=== PATIENT | female | born 1995 | race Caucasian/White ===

== ENCOUNTER 2020-01-10 16:53 | Emergency (ER) | payer BC ==
[2020-01-10] MEDS ORDERED: Ketorolac 30 MG/ML SDV IVPUSH ONE (17:11)
[2020-01-10] MEDS ORDERED: Sodium Chloride 0.9% 10 ML Syringe FLUSH PRN (17:11)
[2020-01-10] MEDS ORDERED: Ondansetron 4 MG/2 ML SDV IVPUSH ONE (17:11)
[2020-01-10] MEDS ORDERED: Sodium Chloride 0.9% 1,000 ML IV ONE (17:11)
--- NOTE | 2020-01-10 17:15 | EDM.PDOC ---
ED HPI GENERAL MEDICAL PROBLEM - General Stated Complaint: STOMACH PAIN Time Seen by Provider: 01/10/20 17:06 Source of Information: Reports: Patient - History of Present Illness INITIAL COMMENTS - FREE TEXT/NARRATIVE: Dalton is a 24 y/o female who comes to the Er with abdominal pain that started about 0600 this AM. She reports the pain in sharp and constant and it makes her cry. Sh edid try some TUMs and Pepto Bismol about an hour ago, but it has not gotten any better. She has felt hot and cold for the last day. She had a normal BM today. Denies that she has been around any family or friends with similar sx. Upper Abdomen Pain Score (Numeric/FACES): 8 - Related Data Allergies Allergy/AdvReac Type Severity Reaction Status Date / Time No Known Allergies Allergy Verified 01/10/20 17:41 Home Meds: Home Meds . [No Known Home Meds] 01/10/20 [History] Review of Systems - Review of Systems Review Of Systems: See Below Constitutional: Reports: Chills, Fever Eyes: Reports: No Symptoms Ears: Reports: No Symptoms Nose: Reports: No Symptoms Mouth/Throat: Reports: No Symptoms Respiratory: Reports: No Symptoms Cardiovascular: Reports: No Symptoms GI/Abdominal: Reports: Abdominal Pain (Epigastric), Nausea Genitourinary: Reports: No Symptoms Musculoskeletal: Reports: No Symptoms Skin: Reports: No Symptoms Neurological: Reports: No Symptoms Psychiatric: Reports: No Symptoms ED EXAM, GENERAL - Physical Exam Exam: See Below General Appearance: Alert, WD/WN, No Apparent Distress (Young adult female, appears to not feel well.) Ears: Hearing Grossly Normal Nose: Normal Inspection Throat/Mouth: Normal Voice Head: Atraumatic, Normocephalic Neck: Normal Inspection Respiratory/Chest: No Respiratory Distress, Lungs Clear, Chest Non-Tender Cardiovascular: Normal Peripheral Pulses, Regular Rate, Rhythm, No Edema, No Murmur GI/Abdominal: Normal Bowel Sounds, Soft, No Organomegaly, No Distention, Tender (Epigastrum) (Female) Exam: Deferred Rectal (Female) Exam: Deferred Back Exam: Normal Inspection, Other (Neg CVAT) Extremities: Normal Inspection, Normal Range of Motion, No Pedal Edema, Normal Capillary Refill Neurological: Alert, Oriented, CN II-XII Intact, Normal Cognition Psychiatric: Normal Affect, Normal Mood Skin Exam: Warm, Dry, Intact, Normal Color Lymphatic: No Adenopathy Course - Vital Signs Text/Narrative:: The patient was seen by the ELEMENTARY SPECIAL EDUCATION TEACHER. Labs ordered. She was given a liter of NS, Toradol 30mg IVP and Zofran 4mg IVP. CT results reviewed. Patient felt better, but was slightly nauseated after the oral CT contrast. She was given discharge instructions and left the ER in stable condition. Last Recorded V/S: Last Vital Signs Temp 36.3 C 01/10/20 17:06 Pulse 73 01/10/20 17:06 Resp 18 01/10/20 17:06 BP 136/84 01/10/20 17:06 Pulse Ox 99 01/10/20 17:06 - Orders/Labs/Meds Orders: Active Orders 24 hr Category Date Time Status CULTURE URINE [RM] Stat Lab 01/10/20 18:10 Received Sodium Chloride 0.9% [Saline Flush] Med 01/10/20 17:11 Active 10 ml FLUSH ASDIRECTED PRN Saline Lock Insert [OM.PC] Stat Oth 01/10/20 17:10 Ordered Medication Orders Sodium Chloride (Saline Flush) 10 ml FLUSH ASDIRECTED PRN PRN Reason: Keep Vein Open Labs: Laboratory Tests 01/10/20 01/10/20 01/10/20 Range/Units 17:16 17:16 18:10 WBC 15.7 H (4.0-10.0) x10^3/uL RBC 4.84 (4.00-5.50) x10^6/uL Hgb 15.1 (12.0-16.0) g/dL Hct 43.9 (33.0-47.0) % MCV 90.7 (78.0-93.0) fL MCH 31.2 (26.0-32.0) pg MCHC 34.4 (32.0-36.0) g/dL RDW Coeff of Olga 11.6 (10.0-15.0) % Plt Count 282 (130-400) x10^3/uL Neut % (Auto) 77.4 (50.0-80.0) % Lymph % (Auto) 17.5 L (25.0-50.0) % [place] % (Auto) 4.5 (2.0-11.0) % Eos % (Auto) 0.4 (0.0-4.0) % Baso % (Auto) 0.2 (0.2-1.2) % Sodium 136 (136-145) mmol/L Potassium 3.6 (3.5-5.1) mmol/L Chloride 101 (98-107) mmol/L Carbon Dioxide 26 (21-32) mmol/L Anion Gap 12.6 (10-20) mmol/L BUN 13 (7-18) mg/dL Creatinine 0.8 (0.55-1.02) mg/dL Est Cr Clr Drug Dosing TNP Estimated GFR (MDRD) > 60 Glucose 90 (74-106) mg/dL Calcium 9.2 (8.5-10.1) mg/dL Corrected Calcium 8.64 (8.5-10.1) mg/dL Total Bilirubin 0.3 (0.2-1.0) mg/dL AST 15 (15-37) U/L ALT 18 (14-59) U/L Alkaline Phosphatase 46 (46-116) U/L Total Protein 8.1 (6.4-8.2) g/dL Albumin 4.7 (3.4-5.0) g/dL Globulin 3.4 Albumin/Globulin Ratio 1.38 Amylase 57 (25-115) U/L Lipase 159 (73-393) U/L Urine Color Dark yellow H (YELLOW) Urine Appearance Cloudy H (CLEAR) Urine pH 6.0 (5.0-8.0) Ur Specific [place] >=1.030 Urine Protein Negative (NEGATIVE) mg/dL Urine Glucose (UA) Negative (NEGATIVE) mg/dL Urine Ketones Negative (NEGATIVE) mg/dL Urine Occult Blood Negative (NEGATIVE) Urine Nitrite Negative (NEGATIVE) Urine Bilirubin Negative (NEGATIVE) Urine Urobilinogen 0.2 (0.2) EU/dL Ur Leukocyte Esterase Trace H (NEGATIVE) Urine RBC 0-5 (NOT SEEN) /HPF Urine WBC 0-5 (NOT SEEN) /HPF Ur Squamous Epith Cells Few H (NEGATIVE) /HPF Urine Bacteria Few H (NEGATIVE) /HPF Urine Mucus Many H (NEGATIVE) /LPF Meds: Medications Generic Name Dose Route Start Last Admin Trade Name Freq PRN Reason Stop Dose Admin Sodium Chloride 10 ml 01/10/20 17:11 Saline Flush FLUSH ASDIRECTED PRN Keep Vein Open Discontinued Medications Generic Name Dose Route Start Last Admin Trade Name Gudelia PRN Reason Stop Dose Admin Sodium Chloride 1,000 mls @ 999 mls/hr 01/10/20 17:11 01/10/20 17:22 Normal Saline IV 01/10/20 18:11 999 mls/hr ONETIME ONE Administration Iopamidol 100 ml 01/10/20 19:09 01/10/20 19:10 Isovue-300 (61%) IVPUSH 01/10/20 19:10 100 ml ONETIME ONE Administration Ketorolac Tromethamine 30 mg 01/10/20 17:11 01/10/20 17:25 Toradol IVPUSH 01/10/20 17:12 30 mg ONETIME ONE Administration Ondansetron HCl 4 mg 01/10/20 17:11 01/10/20 17:23 Zofran IVPUSH 01/10/20 17:12 4 mg ONETIME ONE Administration Ondansetron HCl 3 packet 01/10/20 19:21 Take Home: Ondansetron Odt 4 Mg, 2 Tab Pack PO 01/10/20 19:22 ONETIME ONE - Radiology Interpretation Free Text/Narrative:: CT Abd/Pelvis W=no acute findings Departure - Departure Time of Disposition: 19:39 Disposition: Home, Self-Care 01 Condition: Good Clinical Impression: Abdominal pain, Nausea & vomiting - Discharge Information *PRESCRIPTION DRUG MONITORING PROGRAM REVIEWED*: No *COPY OF PRESCRIPTION DRUG MONITORING REPORT IN PATIENT EMILEE: No Instructions: Nausea and Vomiting, Adult Additional Instructions: -Ondanestron 4mg oral every 4 hours as needed for nausea #6(ER) -Rest -Stay hydrated with sips of clear liquids. Advance your diet as you are able. -If your pain is worse or you are not improving, follow up with your PCP or return to the ER. Sepsis Event Note (ED) - Focused Exam Vital Signs: Vital Signs Temp Pulse Resp BP Pulse Ox 01/10/20 17:06 36.3 C 73 18 136/84 99 - My Orders Last 24 Hours: My Active Orders 01/10/20 17:10 Saline Lock Insert [OM.PC] Stat 01/10/20 17:11 Sodium Chloride 0.9% [Saline Flush] 10 ml FLUSH ASDIRECTED PRN 01/10/20 18:10 CULTURE URINE [RM] Stat - Assessment/Plan Last 24 Hours: My Active Orders 01/10/20 17:10 Saline Lock Insert [OM.PC] Stat 01/10/20 17:11 Sodium Chloride 0.9% [Saline Flush] 10 ml FLUSH ASDIRECTED PRN 01/10/20 18:10 CULTURE URINE [] Stat
[2020-01-10 17:56] LABS: ANION GAP 12.6 mmol/L (10-20); CHLORIDE,CL 101 mmol/L (98-107); SODIUM,NA 136 mmol/L (136-145)
[2020-01-10] MEDS ORDERED: Iopamidol 612 MG/ML 100 ML Bottle IVPUSH ONE (19:09)
[2020-01-10] MEDS ORDERED: Take Home: Ondansetron 4 MG Tab.DIS, 2 Tab Pack PO ONE (19:21)
--- NOTE | 2020-01-10 19:34 | CT ---
[id number] CT/CT Abdomen Pelvis W IV EXAM: CT Abdomen Pelvis W IV CLINICAL DATA: EPIGASTRIC PAIN HIGH WBC. COMPARISON STUDY: None. FINDINGS: Lung bases are clear. Liver, spleen, gallbladder, pancreas, adrenal glands, and kidneys are unremarkable. No bowel obstruction or inflammation. There is a partially visualized tubular structure within the right lower quadrant which likely represents the appendix. If so it is normal in caliber. There are no secondary signs of acute appendicitis. No lymphadenopathy, or pneumoperitoneum. The uterus is unremarkable. Small bilateral renal adnexal cysts. Small amount of free fluid within the pelvis. Scattered changes of spondylosis the spine. No fracture or osseous lesion. IMPRESSION: 1. The appendix is not definitely identified. There are no definite secondary signs of acute appendicitis. If clinical concern, surgical consultation is recommended. Otherwise, no definite acute CT findings within the abdomen or pelvis to explain the patient's symptoms. Narendra Vazquez DO 01/10/20 1932 Thank you for allowing us to participate in the care of your patient.
== END 2020-01-10 20:05 | disposition home or self-care (01) ==
LOC: VM.ED 16:53
DX: R10.13 Epigastric pain (principal); R11.2 Nausea with vomiting, unspecified
CPT/HCPCS: 74177; 80053; 81001; 82150; 83690; 85025; 87086; 96361; 96374; 96375; 99284-25; A9270-GY; J1885; J2405; J7030; Q9967

== ENCOUNTER 2020-03-30 01:05 | Emergency (ER) | payer BC ==
[2020-03-30] MEDS ORDERED: GI Cocktail Oral Solution 30 ML PO ONE (01:21)
--- NOTE | 2020-03-30 01:26 | EDM.PDOC ---
ED HPI GENERAL MEDICAL PROBLEM - General Chief Complaint: Abdominal Pain Stated Complaint: Epigastric pain, vomiting Time Seen by Provider: 03/30/20 01:17 Source of Information: Reports: Patient - History of Present Illness INITIAL COMMENTS - FREE TEXT/NARRATIVE: Yessi is a 24 y/o female who comes to the ER with epigastric pain that started about 11pm. She reports eating chili about 3pm today and then she went to bed, ut woke up feeling this way. Describes the pain as a "pressure coming up" and "burning". No fever. She tried a Zofran at home, but it has not helped. She feels nauseated and has been wretching. Epigastric Pain Score (Numeric/FACES): 7 - Related Data Allergies Allergy/AdvReac Type Severity Reaction Status Date / Time No Known Allergies Allergy Verified 03/30/20 01:13 Home Meds: Home Meds FLUoxetine HCl [Prozac] 20 mg PO DAILY 03/30/20 [History] Past Medical History - Past Health History Medical/Surgical History: Denies Medical/Surgical History Review of Systems - Review of Systems Review Of Systems: See Below Constitutional: Reports: No Symptoms Eyes: Reports: No Symptoms Ears: Reports: No Symptoms Nose: Reports: No Symptoms Mouth/Throat: Reports: No Symptoms Respiratory: Reports: No Symptoms, Cough GI/Abdominal: Reports: Abdominal Pain (Epigastric), Nausea, Vomiting Genitourinary: Reports: No Symptoms Musculoskeletal: Reports: No Symptoms Skin: Reports: No Symptoms Neurological: Reports: No Symptoms Psychiatric: Reports: No Symptoms ED EXAM, GENERAL - Physical Exam Exam: See Below General Appearance: Alert, WD/WN, No Apparent Distress (Appears to not feel well) Ears: Normal External Exam Nose: Normal Inspection Throat/Mouth: Normal Voice Head: Atraumatic, Normocephalic Neck: Normal Inspection Respiratory/Chest: No Respiratory Distress, Lungs Clear Cardiovascular: Normal Peripheral Pulses, Regular Rate, Rhythm GI/Abdominal: Normal Bowel Sounds, No Distention, Tender (Epigastric region) (Female) Exam: Deferred Rectal (Female) Exam: Deferred Back Exam: Vertebral Tenderness (lumbar region) Extremities: Normal Inspection, Normal Capillary Refill Neurological: Alert, Oriented, CN II-XII Intact Psychiatric: Normal Affect, Normal Mood Skin Exam: Warm, Dry, Intact, Normal Color Lymphatic: No Adenopathy Course - Vital Signs Text/Narrative:: 0117 The patient was seen by the OFFICE SUPERVISOR. Her ER note from was reviewed and findings negative at that time. She was given a GI Cocktail, suspect indigestion but if sx not better will obtain labs. 0145 Patient vomiting and wretching after GI Cocktail. Labs ordered. 1 liter of LR and Reglan 10 mg IVP given. 0255 Patient will having abd pain in epigastrum. WBC=14.1, neut=8o%, COVID+. Ct Abd/Pelvis W ordered. 0430 CT results reviewed, note early appendicitis. [facility] contacted for transfer. Dr Apple consulted regarding patient; patient accepted for transfer. She is discussing with surgeon and planning where patient will go at [facility]. CT and report sent to [facility]. Zosyn 3.375gm IVPB ordered. 0445 Patient awaiting transfer while Zosyn infuses. Morphine 4mg IVP and Zofran 4mg IVP. Patient remained stable until leaving the ER via POV for transfer to [place]. Last Recorded V/S: Last Vital Signs Temp 36.7 C 03/30/20 03:15 Pulse 65 03/30/20 01:05 Resp 16 03/30/20 01:05 BP 112/76 03/30/20 01:05 Pulse Ox 96 03/30/20 01:05 - Orders/Labs/Meds Orders: Active Orders 24 hr Category Date Time Status Abdomen Pelvis w Cont [CT] Stat Exams 03/30/20 02:58 Taken CORONAVIRUS COVID-19 PCR PHL Stat Lab 03/30/20 01:55 Ordered CULTURE URINE [RM] Stat Lab 03/30/20 01:56 Received Piperacillin/Tazobactam [Zosyn] 3.375 gm Med 03/30/20 04:30 Ordered Sodium Chloride 0.9% [Normal Saline] 100 ml IV STAT Medication Orders Piperacillin Sod/Tazobactam (Sod 3.375 gm/ Sodium Chloride) 100 mls @ 200 mls/hr IV STAT ONE Stop: 03/30/20 04:59 Labs: Laboratory Tests 03/30/20 03/30/20 03/30/20 Range/Units 01:56 01:56 01:56 WBC (4.0-10.0) x10^3/uL RBC (4.00-5.50) x10^6/uL Hgb (12.0-16.0) g/dL Hct (33.0-47.0) % MCV (78.0-93.0) fL MCH (26.0-32.0) pg MCHC (32.0-36.0) g/dL RDW Coeff of Olga (10.0-15.0) % Plt Count (130-400) x10^3/uL Neut % (Auto) (50.0-80.0) % Lymph % (Auto) (25.0-50.0) % [place] % (Auto) (2.0-11.0) % Eos % (Auto) (0.0-4.0) % Baso % (Auto) (0.2-1.2) % Sodium (136-145) mmol/L Potassium (3.5-5.1) mmol/L Chloride (98-107) mmol/L Carbon Dioxide (21-32) mmol/L Anion Gap (10-20) mmol/L BUN (7-18) mg/dL Creatinine (0.55-1.02) mg/dL Est Cr Clr Drug Dosing mL/min Estimated GFR (MDRD) Glucose (74-106) mg/dL Calcium (8.5-10.1) mg/dL Corrected Calcium (8.5-10.1) mg/dL Total Bilirubin (0.2-1.0) mg/dL AST (15-37) U/L ALT (14-59) U/L Alkaline Phosphatase (46-116) U/L Total Protein (6.4-8.2) g/dL Albumin (3.4-5.0) g/dL Globulin Albumin/Globulin Ratio Amylase (25-115) U/L Urine Color Dark yellow H (YELLOW) Urine Appearance Slightly cloudy H (CLEAR) Urine pH 5.5 (5.0-8.0) Ur Specific [place] >=1.030 Urine Protein 30 H (NEGATIVE) mg/dL Urine Glucose (UA) Negative (NEGATIVE) mg/dL Urine Ketones Trace H (NEGATIVE) mg/dL Urine Occult Blood Negative (NEGATIVE) Urine Nitrite Negative (NEGATIVE) Urine Bilirubin Small H (NEGATIVE) Urine Urobilinogen 0.2 (0.2) EU/dL Ur Leukocyte Esterase Trace H (NEGATIVE) Urine RBC 0-5 (NOT SEEN) /HPF Urine WBC 5-10 H (NOT SEEN) /HPF Ur Squamous Epith Cells Moderate H (NEGATIVE) /HPF Urine Bacteria Rare (NEGATIVE) /HPF Urine Mucus Few H (NEGATIVE) /LPF Urine HCG, Qual Negative (NEGATIVE) Urine Opiates Screen Negative (NEGATIVE) Ur Buprenorphine Scrn Negative (NEGATIVE) Ur Oxycodone Screen Negative (NEGATIVE) Ur EDDP (Meth Metab) Negative (NEGATIVE) Urine Methadone Screen Negative (NEGATIVE) Ur Barbituates Screen Negative (NEGATIVE) Ur Tricyclics Screen Negative (NEGATIVE) Ur Phencyclidine Scrn Negative (NEGATIVE) Ur Amphetamines Screen Negative (NEGATIVE) U Methamphetamines Scrn Negative (NEGATIVE) Urine MDMA Screen Negative (NEGATIVE) U Benzodiazepines Scrn Negative (NEGATIVE) Urine Cocaine Screen Negative (NEGATIVE) U Marijuana (THC) Screen Positive H (NEGATIVE) SARS CoV-2 RNA Rapid DARIUS (NEGATIVE) 03/30/20 03/30/20 03/30/20 Range/Units 02:04 02:10 02:10 WBC 14.1 H (4.0-10.0) x10^3/uL RBC 4.66 (4.00-5.50) x10^6/uL Hgb 14.3 (12.0-16.0) g/dL Hct 41.6 (33.0-47.0) % MCV 89.3 (78.0-93.0) fL MCH 30.7 (26.0-32.0) pg MCHC 34.4 (32.0-36.0) g/dL RDW Coeff of Olga 11.7 (10.0-15.0) % Plt Count 219 (130-400) x10^3/uL Neut % (Auto) 80.2 H (50.0-80.0) % Lymph % (Auto) 15.6 L (25.0-50.0) % [place] % (Auto) 3.8 (2.0-11.0) % Eos % (Auto) 0.3 (0.0-4.0) % Baso % (Auto) 0.1 L (0.2-1.2) % Sodium 140 (136-145) mmol/L Potassium 3.4 L (3.5-5.1) mmol/L Chloride 103 (98-107) mmol/L Carbon Dioxide 21 (21-32) mmol/L Anion Gap 19.4 (10-20) mmol/L BUN 12 (7-18) mg/dL Creatinine 0.9 (0.55-1.02) mg/dL Est Cr Clr Drug Dosing 101.60 mL/min Estimated GFR (MDRD) > 60 Glucose 119 H (74-106) mg/dL Calcium 9.0 (8.5-10.1) mg/dL Corrected Calcium 8.60 (8.5-10.1) mg/dL Total Bilirubin 0.3 (0.2-1.0) mg/dL AST 14 L (15-37) U/L ALT 20 (14-59) U/L Alkaline Phosphatase 45 L (46-116) U/L Total Protein 8.0 (6.4-8.2) g/dL Albumin 4.5 (3.4-5.0) g/dL Globulin 3.5 Albumin/Globulin Ratio 1.29 Amylase 62 (25-115) U/L Urine Color (YELLOW) Urine Appearance (CLEAR) Urine pH (5.0-8.0) Ur Specific [place] Urine Protein (NEGATIVE) mg/dL Urine Glucose (UA) (NEGATIVE) mg/dL Urine Ketones (NEGATIVE) mg/dL Urine Occult Blood (NEGATIVE) Urine Nitrite (NEGATIVE) Urine Bilirubin (NEGATIVE) Urine Urobilinogen (0.2) EU/dL Ur Leukocyte Esterase (NEGATIVE) Urine RBC (NOT SEEN) /HPF Urine WBC (NOT SEEN) /HPF Ur Squamous Epith Cells (NEGATIVE) /HPF Urine Bacteria (NEGATIVE) /HPF Urine Mucus (NEGATIVE) /LPF Urine HCG, Qual (NEGATIVE) Urine Opiates Screen (NEGATIVE) Ur Buprenorphine Scrn (NEGATIVE) Ur Oxycodone Screen (NEGATIVE) Ur EDDP (Meth Metab) (NEGATIVE) Urine Methadone Screen (NEGATIVE) Ur Barbituates Screen (NEGATIVE) Ur Tricyclics Screen (NEGATIVE) Ur Phencyclidine Scrn (NEGATIVE) Ur Amphetamines Screen (NEGATIVE) U Methamphetamines Scrn (NEGATIVE) Urine MDMA Screen (NEGATIVE) U Benzodiazepines Scrn (NEGATIVE) Urine Cocaine Screen (NEGATIVE) U Marijuana (THC) Screen (NEGATIVE) SARS CoV-2 RNA Rapid DARIUS Positive H (NEGATIVE) Meds: Medications Generic Name Dose Route Start Last Admin Trade Name Freq PRN Reason Stop Dose Admin Piperacillin Sod/Tazobactam 100 mls @ 200 mls/hr 10/27/20 04:30 Sod 3.375 gm/ Sodium Chloride IV 03/30/20 04:59 STAT ONE Discontinued Medications Generic Name Dose Route Start Last Admin Trade Name Gudelia PRN Reason Stop Dose Admin Al Hydroxide/Mg Hydroxide 30 ml 03/30/20 01:21 03/30/20 01:35 Gi Cocktail PO 03/30/20 01:22 30 ml ONETIME ONE Administration Fentanyl 50 mcg 03/30/20 02:57 03/30/20 03:21 Sublimaze IVPUSH 03/30/20 02:58 50 mcg ONETIME ONE Administration Lactated Ringer's 1,000 mls @ 999 mls/hr 03/30/20 01:44 03/30/20 02:15 Ringers, Lactated IV 03/30/20 02:44 999 mls/hr ONETIME ONE Administration Iopamidol 100 ml 03/30/20 03:27 03/30/20 03:54 Isovue-300 (61%) IVPUSH 03/30/20 03:28 100 ml ONETIME ONE Administration Metoclopramide HCl 20 mg 03/30/20 01:44 Reglan IVPUSH 03/30/20 01:45 ONETIME ONE Metoclopramide HCl 10 mg 03/30/20 02:15 03/30/20 02:30 Reglan IVPUSH 03/30/20 02:16 10 mg ONETIME ONE Administration Prochlorperazine Edisylate 10 mg 03/30/20 02:57 03/30/20 03:19 Compazine IV 03/30/20 02:58 10 mg ONETIME ONE Administration - Radiology Interpretation Free Text/Narrative:: 03/30/[address] Abd/Pelvis W=early appendicitis, fluid filled nondistended small bowel (See Radiology Report) Departure - Departure Time of Disposition: 04:45 Disposition: DC/Tfer to Acute Hospital 02 Condition: Good Clinical Impression: COVID-19 Appendicitis Qualifiers: Appendicitis type: acute appendicitis Acute appendicitis type: unspecified acute appendicitis type Qualified Code(s): K35.80 - Unspecified acute appendicitis - Discharge Information Referrals: PCP,Unobtain [Primary Care Provider] - Forms: ED Department Discharge, Interfacility Transfer EMTALA Sepsis Event Note (ED) - Focused Exam Vital Signs: Vital Signs Temp Pulse Resp BP Pulse Ox 03/30/20 03:15 36.7 C 03/30/20 01:05 36.5 C 65 16 112/76 96 - My Orders Last 24 Hours: My Active Orders 03/30/20 01:55 CORONAVIRUS COVID-19 PCR PHL Stat 03/30/20 01:56 CULTURE URINE [RM] Stat 03/30/20 02:58 Abdomen Pelvis w Cont [CT] Stat 03/30/20 04:30 Piperacillin/Tazobactam [Zosyn] 3.375 gm Sodium Chloride 0.9% [Normal Saline] 100 ml IV STAT - Assessment/Plan Last 24 Hours: My Active Orders 03/30/20 01:55 CORONAVIRUS COVID-19 PCR PHL Stat 03/30/20 01:56 CULTURE URINE [RM] Stat 03/30/20 02:58 Abdomen Pelvis w Cont [CT] Stat 03/30/20 04:30 Piperacillin/Tazobactam [Zosyn] 3.375 gm Sodium Chloride 0.9% [Normal Saline] 100 ml IV STAT Assessment:: 1)Acute Appendicitis 2)COVID+ Plan: -Transfer to [facility] ER by IAN
[2020-03-30] MEDS ORDERED: Metoclopramide 10 MG/2 ML SDV IVPUSH ONE ×2 (01:44→02:15)
[2020-03-30] MEDS ORDERED: Lactated Ringers 1,000 ML IV ONE (01:44)
[2020-03-30 02:29] LABS: BUPRENORPHINE,URINE NEGATIVE (NEGATIVE); MARIJUANA,URINE POSITIVE (NEGATIVE); METHYLENEDIOXYMETHAMP,UR NEGATIVE (NEGATIVE); PHENCYCLIDINE,URINE NEGATIVE (NEGATIVE)
[2020-03-30 02:37] LABS: CHLORIDE,CL 103 mmol/L (98-107); SODIUM,NA 140 mmol/L (136-145)
[2020-03-30 02:38] LABS: ANION GAP 19.4 mmol/L (10-20)
[2020-03-30] MEDS ORDERED: fentaNYL 100 MCG/2 ML SDV IVPUSH ONE (02:57)
[2020-03-30] MEDS ORDERED: Prochlorperazine 10 MG/2 ML SDV IV ONE (02:57)
[2020-03-30] MEDS ORDERED: Iopamidol 612 MG/ML 100 ML Bottle IVPUSH ONE (03:27)
[2020-03-30] MEDS ORDERED: Piperacillin/Tazobactam 3.375 GM in Sodium Chloride 0.9% 100 ML IV ONE (04:30)
[2020-03-30] MEDS ORDERED: Morphine 4 MG/ML Syringe IVPUSH ONE (04:46)
[2020-03-30] MEDS ORDERED: Ondansetron 4 MG/2 ML SDV IVPUSH ONE (04:46)
--- NOTE | 2020-03-30 07:52 | CT ---
[id number] CT/CT Abdomen Pelvis W IV EXAM: CT Abdomen Pelvis W IV CLINICAL DATA: ABDOMINAL PAIN COMPARISON: CORRELATION IS MADE WITH JANUARY 10, 2020 FINDINGS: The appendix is seen on image 120, series 2 The appendix is slightly dilated There is no appendicolith. The endometrium is prominent likely physiologic There is no free fluid The liver and spleen, kidneys, adrenals, pancreas and aorta are unremarkable The gallbladder is not distended The pelvis shows no mass or abscess IMPRESSION: QUESTION OF EARLY APPENDICITIS Mele Hernandez MD 03/30/20 0751 Thank you for allowing us to participate in the care of your patient.
== END 2020-03-30 06:00 | disposition short-term general hospital (02) ==
LOC: VM.ED 01:05
DX: K35.80 Unspecified acute appendicitis (principal); U07.1 COVID-19
CPT/HCPCS: 74177; 80053; 80305-QW; 81001; 81025; 82150; 85025; 87086; 96365; 96375; 99284; 99285-25; A9270-GY; J0780; J2270; J2405; J2543; J2765; J3010; J7050; J7120; Q9967; U0002